=== PATIENT | male | born 1950 | race Two or more races ===

== ENCOUNTER 2018-01-09 08:25 | Day surgery (SDC) | payer OTHER | END 2018-01-09 13:40 | disposition home or self-care (01) | LOC: AMB-ENDOS 08:25 | DX: C20 Malignant neoplasm of rectum (principal); K62.89 Other specified diseases of anus and rectum ==

== ENCOUNTER 2018-11-06 07:00 | Day surgery (SDC) | payer OTHER | END 2018-11-06 11:45 | disposition home or self-care (01) | LOC: AMB-ENDOS 07:00 → LAB 14:06 → AMB-ENDOS 19:10 | DX: C20 Malignant neoplasm of rectum (principal) ==

== ENCOUNTER 2018-12-08 13:45 | Inpatient (IN) | payer OTHER ==
[~2018-12-08] VITALS: Ht 172.7 cm; Wt 55.8 kg
[2018-12-08] MEDS ORDERED: VITAMIN D400 UNI5 PO (16:27)
[2018-12-08] MEDS ORDERED: IRON325 MG PO (16:27)
[2018-12-16] MEDS ORDERED: OXYC1TAB9 PO (12:54)
[2018-12-16] MEDS ORDERED: TAMSULOSIN HCL0.4 MG PO (12:54)
== END 2018-12-16 14:10 | disposition home or self-care (01) | DRG 330 ==
LOC: O/R 13:45 → SURH 12-12 09:50 → O/R 12-12 11:00 → SURH 12-12 20:24
PROVIDERS: ADMIT Surgery
PROC: 07TC4ZZ Resection of Pelvis Lymphatic, Percutaneous Endoscopic Approach (ICD-10-PCS; 2018-12-12)
PROC: 0D1L474 Bypass Transverse Colon to Cutaneous with Autologous Tissue Substitute, Percutaneous Endoscopic Approach (ICD-10-PCS; 2018-12-12)
PROC: 0DTN4ZZ Resection of Sigmoid Colon, Percutaneous Endoscopic Approach (ICD-10-PCS; principal; 2018-12-12 11:00)
DX: C20 Malignant neoplasm of rectum (principal); K62.5 Hemorrhage of anus and rectum; R59.0 Localized enlarged lymph nodes; K63.89 Other specified diseases of intestine; E83.42 Hypomagnesemia

== ENCOUNTER 2019-04-26 10:54 | Inpatient (IN) | payer OTHER ==
[~2019-04-26] VITALS: Ht 172.7 cm; Wt 49.9 kg
[~2019-04-26 10:54] MED LIST: IRON325 MG PO; OXYC1TAB9 PO; TAMSULOSIN HCL0.4 MG PO; VITAMIN D400 UNI5 PO
[2019-04-26] MEDS ORDERED: TAMS0.4C PO (11:48)
[2019-04-29] MEDS ORDERED: ULTRACET PO (13:06)
== END 2019-04-29 15:42 | disposition home or self-care (01) | DRG 394 ==
LOC: ER 10:54 → SURH 04-27 08:12
PROVIDERS: ADMIT Surgery
PROC: 0DH67UZ Insertion of Feeding Device into Stomach, Via Natural or Artificial Opening (ICD-10-PCS; principal; 2019-04-27)
PROC: 3E0G76Z Introduction of Nutritional Substance into Upper GI, Via Natural or Artificial Opening (ICD-10-PCS; 2019-04-27)
DX: K94.03 Colostomy malfunction (principal); K56.690 Other partial intestinal obstruction; C20 Malignant neoplasm of rectum; E44.0 Moderate protein-calorie malnutrition; E83.42 Hypomagnesemia; E86.0 Dehydration; E87.8 Other disorders of electrolyte and fluid balance, not elsewhere classified

== ENCOUNTER 2019-05-31 15:49 | Inpatient (IN) | payer OTHER ==
[~2019-05-31] VITALS: Ht 175.3 cm; Wt 50.8 kg
[~2019-05-31 15:49] MED LIST changes: +TAMS0.4C PO; +ULTRACET PO
--- NOTE | 2019-05-31 16:07 | NUR ---
SE RECIBE PTE AMBULANDO ALERTA Y ORIENTADO X3 CON REFERIDO MEDICO DE DR. 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 SE UBICA A PTE EN AREA DE SECCION K PARA SER EVALUADO POR MEDICO.
--- NOTE | 2019-05-31 19:00 | NUR ---
SE ORIENTA AL PACIENTE SOBRE EL TX. REFIERE ENTENDER. SE EXTRAEN MUESTRAS DE [place] MEDIDAS ASEPTICAS SE ROTULAN Y ENVIAN AL LABORATORIO. SE CANALIZA Y ADMINISTRAN MEDICAMENTOS HORACIO ORDEN MEDICA. SE INSERTA NGT BAJO MEDIDAS ASEPTICAS, SE VERIFICA PATENTICIDAD, SE CONECTA A SUCCION INTERMITENTE DRENANDO 1200ML
--- NOTE | 2019-06-01 00:24 | NUR ---
SE RECIBE PTE ALERTA Y ORIENTADO X3 EN CAMA CON BARANDAS ELEVADAS ACOMPANADO. SE RECIBE PTE CON TNG INSERTADO EN NARE DERECHO CON SUBCCION INTERMITENTE LOW DRENANDO 1100ML DE RESIDUAL GASTRICO. SE RECIBE PTE CANALIZADO AREA AMARA DE EDEMA Y DE ENROJECIMIENTO. SE RECIBE PTE CON DRIP DE .9NSS BAJANDO A 125ML/HR. SE CAMBIA CANISTER DE SUBCCION EL CUAL DRENA 1000ML DE RESIDUAL. PTE SE MANTIENE BAJO OBSERVACION POR CAMBIOS.
[2019-06-10] MEDS ORDERED: PRILOSEC OTC20 MG PO (11:46)
[2019-06-10] MEDS ORDERED: INTESTINEX680 M1 PO (11:46)
== END 2019-06-10 14:11 | disposition home or self-care (01) | DRG 394 ==
LOC: ER 15:49 → SEC-K 06-01 09:13 → SURG 06-01 09:13 → SURH 06-01 13:02 → SURG 06-02 09:48
PROVIDERS: ADMIT Surgery
PROC: 0DH67UZ Insertion of Feeding Device into Stomach, Via Natural or Artificial Opening (ICD-10-PCS; 2019-06-01)
PROC: 3E0G76Z Introduction of Nutritional Substance into Upper GI, Via Natural or Artificial Opening (ICD-10-PCS; 2019-06-01)
PROC: 02HV33Z Insertion of Infusion Device into Superior Vena Cava, Percutaneous Approach (ICD-10-PCS; 2019-06-02)
PROC: 3E0436Z Introduction of Nutritional Substance into Central Vein, Percutaneous Approach (ICD-10-PCS; 2019-06-02)
PROC: BW21Y0Z Computerized Tomography (CT Scan) of Abdomen and Pelvis using Other Contrast, Unenhanced and Enhanced (ICD-10-PCS; 2019-06-04)
PROC: 0DBK8ZX Excision of Ascending Colon, Via Natural or Artificial Opening Endoscopic, Diagnostic (ICD-10-PCS; principal; 2019-06-08)
DX: K94.03 Colostomy malfunction (principal); K56.690 Other partial intestinal obstruction; E44.0 Moderate protein-calorie malnutrition; N17.8 Other acute kidney failure; R18.8 Other ascites; C20 Malignant neoplasm of rectum; J90 Pleural effusion, not elsewhere classified; D12.4 Benign neoplasm of descending colon; E83.42 Hypomagnesemia; E86.0 Dehydration; E87.8 Other disorders of electrolyte and fluid balance, not elsewhere classified

== ENCOUNTER 2019-07-02 16:20 | Outpatient (CLI) | payer OTHER ==
[~2019-07-02 16:20] MED LIST changes: +INTESTINEX680 M1 PO; +PRILOSEC OTC20 MG PO
== END 2019-07-02 16:32 | disposition home or self-care (01) ==
LOC: RAD 16:20
DX: C20 Malignant neoplasm of rectum (principal); Z01.811 Encounter for preprocedural respiratory examination

== ENCOUNTER 2019-07-11 18:51 | Emergency (ER) | payer OTHER ==
[~2019-07-11] VITALS: Ht 175.3 cm; Wt 54.4 kg
== END 2019-07-12 00:25 | disposition expired ==
LOC: ER 18:51
DX: I46.9 Cardiac arrest, cause unspecified (principal); K56.699 Other intestinal obstruction unspecified as to partial versus complete obstruction